=== PATIENT | female | born 1950 | race Caucasian/White ===

== ENCOUNTER 2016-05-28 07:46 | Inpatient (IN) | payer OTHER ==
[~2016-05-28] VITALS: Ht 175.3 cm; Wt 81.6 kg
[2016-05-28 07:46] VITALS: BP 114/70; PULSE 70; RESP 16; TEMP 96.9; O2SAT 96
[~2016-05-28 07:46] MED LIST: AMLO5TAB4 PO; ATEN100T44 PO; CARV12.548 PO; GABA-531 PO; HYDR-3698 PO; LOSA100T11 PO; METO-442 PO; PHEN-791 PO; SULF1TAB3 PO; TRAZ-123 PO
--- NOTE | 2016-05-28 07:46 | NUR ---
NNEKA Mcnair from home, Placed in room 06. Placed on group home paraprofessional, blood pressure machine and pulse oximeter. To gown for exam. Side rails up. Report given to ERASTO Paz.
--- NOTE | 2016-05-28 07:50 | NUR ---
Dr. Reynolds at bedside for evaluation
[2016-05-28] MEDS ORDERED: NACL 0.9% 1,000 ML IV SCH (08:08)
[2016-05-28] MEDS ORDERED: HYDROcodone/ACETAMIN 5-325 MG TAB (NORCO/ VICODIN) PO ONE (08:15)
[2016-05-28] MEDS ORDERED: NITROFURANTOIN MACROCRYSTAL 50 MG CAPSULE PO ONE (08:15)
--- NOTE | 2016-05-28 08:25 | NUR ---
at bedside, states that his hasn't walked in "quite a while" with pain on right hip radiating down right leg and rt leg. Taking Bactrim for UTI since 05/19/16
[2016-05-28 08:28] LABS: BASOPHILS % (AUTO) 0.4 % (0.0-2.0); EOSINOPHILS # (AUTO) 0.1 K/uL (0.0-0.4); EOSINOPHILS % (AUTO) 1.4 % (0.0-4.0); HEMATOCRIT 36.6 % (36-48); HEMOGLOBIN 12.6 g/dL (12.0-16.0); LYMPHOCYTES # (AUTO) 1.8 K/uL (1.0-5.5); LYMPHOCYTES % (AUTO) 19.8 % (20.5-51.5); MEAN CORPUSCULAR HEMOGLOBIN 29 pg (27-31); MEAN CORPUSCULAR HGB CONC 34 % (32-36); MEAN CORPUSCULAR VOLUME 86 fL (79.0-98.0); MONOCYTES # (AUTO) 0.4 K/uL (0.0-1.0); NEUTROPHILS # (AUTO) 6.8 K/uL (1.8-7.7); NEUTROPHILS % (AUTO) 74.4 % (40.0-70.0); PLATELET COUNT (AUTO) 255 K/uL (130-430); RED BLOOD CELL COUNT(AUTO) 4.27 MIL/uL (4.2-6.2); RED CELL DISTRIBUTION WIDTH 13.8 % (9.0-15.0); WHITE BLOOD COUNT (AUTO) 9.1 K/uL (4.8-10.8)
[2016-05-28 08:29] LABS: BILIRUBIN,URINE NEGATIVE (NEGATIVE); CLARITY/URINE SL CLOUDY (CLEAR); COLOR,URINE YELLOW (YELLOW); GLUCOSE,URINE NEGATIVE (NEGATIVE); KETONES,URINE NEGATIVE (NEGATIVE); LEUKOCYTE ESTERASE ,URINE 3+ (NEGATIVE); NITRITE, URINE POSITIVE (NEGATIVE); PROTEIN URINE NEGATIVE (NEGATIVE); UROBILINOGEN,URINE 0.2 (0.2-1.0)
[2016-05-28 08:30] LABS: BLOOD, URINE TRACE (NEGATIVE)
[2016-05-28 08:38] LABS: PROTHROMBIN TIME 10.7 SECS (9.5-12.5)
[2016-05-28] MEDS ORDERED: HYDR-3610 PO (08:38)
[2016-05-28] MEDS ORDERED: HYDR-1115 PO (08:38)
[2016-05-28] MEDS ORDERED: CARI350T27 PO (08:38)
[2016-05-28] MEDS ORDERED: CARV12.548 PO (08:38)
--- NOTE | 2016-05-28 08:39 | NUR ---
Medication reconciliation completed with information provided by . Any prior medication reconciliation on file was reviewed and corrected.
[2016-05-28 08:41] LABS: BACTERIA,URINE MODERATE /HPF (None Seen); MUCUS,URINE 1+ /LPF (None Seen); RBC,URINE 0-3 /HPF (0-3); WBC,URINE 20-50 /HPF (0-3)
[2016-05-28 08:41] LABS: CALCIUM 8.6 mg/dL (8.4-11.0); CREATININE 1.46 mg/dL (0.55-1.30); POTASSIUM 4.4 mmol/L (3.5-5.1)
[2016-05-28] MEDS ORDERED: KETOROLAC TROMETHAMINE 30 MG VIAL IVP ONE (08:45)
[2016-05-28 08:46] LABS: ALBUMIN 3.2 g/dL (3.4-4.8); TOTAL BILIRUBIN 0.3 mg/dL (0.0-1.0); TOTAL PROTEIN, SERUM 6.5 g/dL (6.4-8.3)
--- NOTE | 2016-05-28 10:10 | NUR ---
LAB TRIED TO REDRAW 2ND LACTIC ACID LEVEL UNSUCESSFULLY. I ATTEMPTED TO REDRAW AND UNSUCCEDDFUL.
--- NOTE | 2016-05-28 10:30 | NUR ---
LAB ATEMPTED REDRAW FOR LACTIC ACID LEVEL SUCCESSFULLY.
--- NOTE | 2016-05-28 11:12 | NUR ---
WAITING FOR ADMITTING MD TO CALL BACK FOR ADMISSION ORDERS.
--- NOTE | 2016-05-28 11:30 | NUR ---
Dr berman in to see pt. Orders left.
[2016-05-28] MEDS ORDERED: ONDANSETRON HCL 4 MG/2 ML VIAL IVP PRN (11:45)
--- NOTE | 2016-05-28 11:56 | NUR ---
Pt transported to [address] via took belongings home. Addendum: 05/28/16 at 1208 by [email or web address] REPORT GIVEN TO ARTI REYES
--- NOTE | 2016-05-28 12:00 | NUR ---
ADMIT NOTE Received pt from ER to the floor with a diagnosis of fall. Admission process initiated. patient oriented to pain management, safety and call light-teach back done.
[2016-05-28 12:15] VITALS: BP 161/102; PULSE 64; RESP 18; TEMP 97.1; O2SAT 94
--- NOTE | 2016-05-28 12:15 | NUR ---
Initial Notes Pt [id number] but a little lethargic. Complaints of pain to right shoulder. No distress noted. IV to right forearm #20g saline locked. Pt is incontinent. Cleaned and kept dry and comfortable. Oriented to unit. Educated about fall and safety precautions. at bedside. Kept comfortable. Will monitor.
[2016-05-28 12:19] VITALS: BP 161/102; PULSE 64; RESP 18; TEMP 97.1; O2SAT 94
--- NOTE | 2016-05-28 13:05 | NUR ---
CONS FOR DR Jennifer MARQUEZ FOR RIGHT LEG PAIN
--- NOTE | 2016-05-28 14:00 | NUR ---
Asleep Pt sound asleep. No signs of facial grimacing for pain or discomfort. No distress noted. Will monitor.
[2016-05-28] MEDS: NACL 0.9% 1,000 ML IV SCH ×2 (14:44→22:32)
[2016-05-28] MEDS: cloNIDine HCL 0.1 MG TABLET PO PRN (14:45)
--- NOTE | 2016-05-28 14:45 | NUR ---
Clonidine Pt asleep but reported by [employer] CHARTER BUS DRIVER that blood pressure was elevated 195/99. Medicated with Clonidine. Will monitor.
--- NOTE | 2016-05-28 14:50 | NUR ---
Assessment Patient awake, alert, oriented x4. Lungs clear. Respiration even and unlabored. 20 gauge peripheral IV in right forearm infusing NS @ 100 with no redness or edema at site. Bruises on bilateral upper extremities. No acute distress at this time. Scheduled IV ABX given per order. Patient stable at this time.
[2016-05-28] MEDS: AMIKACIN SULFATE 500 MG in D5W 100 ML IV SCH (14:54)
[2016-05-28 15:35] VITALS: BP 195/99; PULSE 65; RESP 16; TEMP 97; O2SAT 96
--- NOTE | 2016-05-28 16:18 | NUR ---
Rounds Pt sound asleep. No significant changes noted. at bedside. Will monitor.
--- NOTE | 2016-05-28 18:30 | NUR ---
Closing notes Pt eating dinner. No significant changes noted. Kept comfortable. Will endorse care to incoming nurse.
--- NOTE | 2016-05-28 18:53 | NUR ---
Dr. Bookre ROSE inside room assessing patient.
[2016-05-28 18:58] VITALS: BP 122/41
--- NOTE | 2016-05-28 19:50 | NUR ---
Initial Notes Patient alert, eating dinner at this time. Patient denies pain. No SOB noted. IV site patent, flushes well, infusing fluids as ordered. Patient repositioned in bed. Denies nausea/vomiting at this time. Goal of pain management, musculoskeletal stability and safety this shift. Call light within reach. Will continue to monitor.
[2016-05-28 20:00] VITALS: BP 135/62; PULSE 70; RESP 18; TEMP 98; O2SAT 93
--- NOTE | 2016-05-28 22:05 | NUR ---
Notes Patient sleeping at this time. No SOB noted. No s/s of pain or discomfort noted. IV site patent, flushes well, infusing fluids as ordered. Call light within reach. Will continue to monitor.
--- NOTE | 2016-05-29 00:15 | NUR ---
Notes Patient sleeping at this time. No SOB noted. No s/s of pain noted. IV site patent, flushes well, infusing fluids as ordered. Call light within reach. Will continue to monitor.
[2016-05-29 04:30] VITALS: BP 145/69; PULSE 85; RESP 18; TEMP 98.5; O2SAT 94
--- NOTE | 2016-05-29 06:33 | NUR ---
Closing Notes Patient denies pain. No SOB noted. IV site patent, flushes well, infusing fluids as ordered. Patient repositioned in bed. Denies nausea/vomiting at this time. Goal of pain management, musculoskeletal stability and safety met. Call light within reach. Will continue to monitor.
[2016-05-29] MEDS: NACL 0.9% 1,000 ML IV SCH ×2 (07:45→11:48)
--- NOTE | 2016-05-29 07:45 | NUR ---
INITIAL NOTE RECEIVED PATIENT FROM TEST ENGINE EVALUATOR NURSE, PATIENT IS RESTING IN BED, NO SIGNS OF DISTRESS, NO COMPLAINTS OF PAIN, ASSESSMENT COMPLETE, PATIENT HAS IV ON LEFT HAND GAUGE 22, WITH FLUIDS RUNNING, NO SIGNS OF INFILTRATION, INSTRUCTED PATIENT TO USE CALL STODDARD IF ASSISTANCE IS NEEDED PATIENT VERBALIZED UNDERSTANDING, BED IN LOWEST POSITION, CALL STODDARD LEFT IN PATIENT'S HAND, BED ALARM ON, TWO SIDE RAILS UP, FALL PRECAUTIONS IN PLACE, WILL CONTINUE TO MONITOR PATIENT.
[2016-05-29 08:00] VITALS: BP 156/95; PULSE 72; RESP 20; TEMP 97.4; O2SAT 94
--- NOTE | 2016-05-29 08:36 | NUR ---
PSYCH CONSULT Spoke with Sangeeta regarding request for consultation with Dr. Mccarthy ([phone]) for reason: dementia/psych illness.
--- NOTE | 2016-05-29 09:50 | NUR ---
RN ROUNDS PATIENT IS RESTING IN BED, NO COMPLAINTS OF PAIN, IS AT BEDSIDE, NO OTHER NEEDS AT THIS TIME, WILL CONTINUE TO MONITOR PATIENT, FALL PRECAUTIONS IN PLACE.
--- NOTE | 2016-05-29 11:45 | NUR ---
RN ROUNDS PATIENT IS RESTING IN BED, IS AT BEDSIDE, NO SIGNS OF DISTRESS, NO OTHER NEEDS AT THIS TIME, WILL CONTINUE TO MONITOR PATIENT, FALL PRECAUTIONS IN PLACE,
[2016-05-29] MEDS: cloNIDine HCL 0.1 MG TABLET PO PRN (11:49)
[2016-05-29] MEDS: HYDROmorphone 1 MG INJ. 1 MG/ML AMPUL IVP PRN (11:50)
[2016-05-29 12:25] VITALS: BP 155/88; PULSE 79; RESP 17; TEMP 97.1; O2SAT 97
[2016-05-29] MEDS: AMIKACIN SULFATE 500 MG in D5W 100 ML IV SCH (13:57)
--- NOTE | 2016-05-29 14:05 | NUR ---
RN ROUNDS PATIENT IS CURRENTLY RESTING IN BED, NO SIGNS OF DISTRESS, NO OTHER NEEDS AT THIS TIME, WILL CONTINUE TO MONITOR PATIENT, FALL PRECAUTIONS IN PLACE.
--- NOTE | 2016-05-29 16:15 | NUR ---
RN ROUNDS PATIENT IS CURRENTLY RESTING IN BED, NO SIGNS OF DISTRESS, PATIENT STATES SHE DOES NOT HAVE PAIN AT THIS TIME, AND SON CURRENTLY AT BEDSIDE, WAS ABLE TO TALK TO DR. DUMONT REGARDING CONCERNS ABOUT PATIENT DISCHARGING BACK HOME, DR. DUMONT ORDERED D/C PLANNING FOR PATIENT TO GO TO SNF. BED LEFT IN LOWEST POSITION, CALL STODDARD LEFT IN PATIENT'S HAND, BED ALARM ON, THREE SIDE RAILS UP, WILL CONTINUE TO MONITOR PATIENT, FALL PRECAUTIONS IN PLACE.
[2016-05-29 16:54] VITALS: BP 148/96; PULSE 73; RESP 18; TEMP 97.4; O2SAT 96
--- NOTE | 2016-05-29 16:55 | NUR ---
HCP GALLO Spoke with GALLO Christensen ([phone]) regarding discharge planning order for SNF placement and order for LSO brace. Faxed over: facesheet, medication list, H+P, discharge order and LSO brace order to fax # [phone]. Awaiting call back from Amparo.
--- NOTE | 2016-05-29 18:38 | NUR ---
CLOSING NOTE PATIENT IS CURRENTLY RESTING IN BED WATCHING TV, PATIENT STATES SHE DOES NOT HAVE ANY PAIN AT THIS TIME, ALL NEEDS MET, WILL ENDORSE PATIENT TO BOAT RENTAL CLERK NURSE, BED LEFT IN LOWEST POSITION, BED ALARM ON, THREE SIDE RAILS UP, FALL PRECAUTIONS IN PLACE.
[2016-05-29 19:40] VITALS: BP 135/76; PULSE 79; RESP 19; TEMP 97.6; O2SAT 95
--- NOTE | 2016-05-29 19:40 | NUR ---
Initial PM Note Pt was received lying in bed fully awake, alert and oriented x3. Speech is clear and pt is able to make her needs known. No c/o pain or discomfort. No acute distress noted. IVF of NS is in fusing well in RFA at 100ml/hr and no signs of infiltration noted at the IV site. Fall precautions are in place. Pt was instructed to call for assistance as needed and pt verbalized understanding. Call light is with pt and bed alarm is on. Bed is in the lowest and locked positions. Will continue to monitor pt.
--- NOTE | 2016-05-29 22:30 | NUR ---
Rounds Pt is resting comfortably in bed. IVF is infusing well in RFA.
[2016-05-30] MEDS: cloNIDine HCL 0.1 MG TABLET PO PRN ×2 (00:59→11:22)
--- NOTE | 2016-05-30 00:59 | NUR ---
Elevated Blood Pressure Blood Pressure 178/72 and Clonidine 0.1mg given po. Pt is moving all her extremities freely and speech is clear. Will continue to monitor pt.
[2016-05-30 01:01] VITALS: BP 178/72; PULSE 80; RESP 20; TEMP 96.8; O2SAT 99
--- NOTE | 2016-05-30 02:00 | NUR ---
Blood Pressure recheck BP 142/78. Pt is resting comfortably in bed. IVF is infusing well in RFA.
[2016-05-30] MEDS: NACL 0.9% 1,000 ML IV SCH (03:00)
--- NOTE | 2016-05-30 04:30 | NUR ---
Rounds Pt is sleeping without any resp distress noted. Fall and safety precautions are in place.
[2016-05-30 04:55] VITALS: BP 184/78; PULSE 69; RESP 16; TEMP 98; O2SAT 97
--- NOTE | 2016-05-30 06:30 | NUR ---
Closing Note Pt is awake and resting comfortably in bed. All pt's needs were attended to. No fall or injury noted this shift. Will endorse to day shift nurse.
--- NOTE | 2016-05-30 06:55 | NUR ---
IV Restart Pt was seen pulling at her IV tubing close to the IV Angiocath site. Angiocath almost completely out and kinked. No blood return noted. Angiocath was removed and noted to be intact. New IV was restarted in RFA with Angiocath 20G by Nurse Dante Sweet. IVF resumed at 100ml/hr. Pt is confused at this time and oriented to her name only. Fall and safety precautions are in place.
--- NOTE | 2016-05-30 07:30 | NUR ---
INITIAL NOTE PATIENT IS RESTING IN BED, NO SIGNS OF DISTRESS, NO COMPLAINTS OF PAIN, ASSESSMENT COMPLETE, PATIENT HAS IV ON RIGHT FOREARM GAUGE 20 WITH FLUIDS RUNNING, NO SIGNS OF INFILTRATION NOTED, INSTRUCTED PATIENT TO USE CALL STODDARD IF ASSISTANCE IS NEEDED, PATIENT VERBALIZED UNDERSTANDING, CALL STODDARD LEFT IN PATIENT'S HAND, BED ALARM ON, BED IN LOWEST POSITION,THREE SIDE RAILS UP FOR PATIENT'S SAFETY, FALL PRECAUTIONS IN PLACE, WILL CONTINUE TO MONITOR PATIENT.
[2016-05-30 08:00] VITALS: BP 173/99; PULSE 72; RESP 16; TEMP 97.2
--- NOTE | 2016-05-30 08:02 | NUR ---
MEDICATION MORNING MEDICATION GIVEN TO PATIENT, EDUCATED PATIENT ON POTENTIAL SIDE EFFECTS OF MEDICATIONS, PATIENT VERBALIZED UNDERSTANDING, NO OTHER NEEDS AT THIS TIME, WILL CONTINUE TO MONITOR PATIENT. FALL PRECAUTIONS IN PLACE, CALL STODDARD LEFT IN PATIENT'S HAND,
[2016-05-30 08:10] LABS: BASOPHILS % (AUTO) 0.2 % (0.0-2.0); EOSINOPHILS # (AUTO) 0.1 K/uL (0.0-0.4); HEMATOCRIT 39.9 % (36-48); HEMOGLOBIN 13.5 g/dL (12.0-16.0); LYMPHOCYTES # (AUTO) 1.5 K/uL (1.0-5.5); LYMPHOCYTES % (AUTO) 17.9 % (20.5-51.5); MEAN CORPUSCULAR HEMOGLOBIN 29 pg (27-31); MEAN CORPUSCULAR HGB CONC 34 % (32-36); MEAN CORPUSCULAR VOLUME 86 fL (79.0-98.0); MONOCYTES # (AUTO) 0.4 K/uL (0.0-1.0); MONOCYTES % (AUTO) 4.5 % (1.7-9.3); NEUTROPHILS # (AUTO) 6.4 K/uL (1.8-7.7); NEUTROPHILS % (AUTO) 76.4 % (40.0-70.0); PLATELET COUNT (AUTO) 279 K/uL (130-430); RED BLOOD CELL COUNT(AUTO) 4.64 MIL/uL (4.2-6.2); RED CELL DISTRIBUTION WIDTH 13.4 % (9.0-15.0); WHITE BLOOD COUNT (AUTO) 8.4 K/uL (4.8-10.8)
[2016-05-30 08:27] LABS: ALBUMIN 3.2 g/dL (3.4-4.8); CALCIUM 8.8 mg/dL (8.4-11.0); CREATININE 1.03 mg/dL (0.55-1.30); POTASSIUM 3.8 mmol/L (3.5-5.1); TOTAL BILIRUBIN 0.5 mg/dL (0.0-1.0); TOTAL PROTEIN, SERUM 6.4 g/dL (6.4-8.3)
[2016-05-30] MEDS ORDERED: LOSARTAN POTASSIUM 50 MG TABLET (COZAAR) PO SCH (09:00)
[2016-05-30] MEDS ORDERED: GABAPENTIN 300 MG CAPSULE PO SCH (09:00)
[2016-05-30] MEDS ORDERED: hydrALAZINE HCL 25 MG TABLET PO SCH (09:00)
[2016-05-30] MEDS ORDERED: CARVEDILOL 12.5 MG TABLET (COREG) PO SCH (09:00)
[2016-05-30] MEDS ORDERED: ASPIRIN 81 MG TAB.CHEW PO SCH (09:00)
--- NOTE | 2016-05-30 10:11 | NUR ---
Called GEETA HOLDER, s/w Hannah. She will forward msg to nurse outreach case manager (on other line).
--- NOTE | 2016-05-30 10:15 | NUR ---
RN ROUND PATIENT IS CURRENTLY RESTING IN BED, NO COMPLAINTS OF PAIN, NO SIGNS OF DISTRESS, DR. DUMONT IS HERE TO SEE PATIENT, WILL CONTINUE TO MONITOR PATIENT, CALL STODDARD LEFT IN PATIENT'S HAND, BED IN LOWEST POSITION, BED ALARM ON, FALL PRECAUTIONS IN PLACE.
--- NOTE | 2016-05-30 10:56 | NUR ---
Called PA/HCP f/u) [phone], tony Benson and I transferred the call to ERASTO Zavala.
--- NOTE | 2016-05-30 11:03 | NUR ---
DC TO SNF: HAS TALKED TO GHANSHYAM< A [employer]IONAL TANKER TRUCK DRIVER OF HCP> REGARDING DC PLAN. I ASK HER THAT IF WE STILL NEED A LUMBAR BRACE BEFOR DISCHARGE, AND SHE STATES THAT THERE WAS A MISCOMMUNICATION ABOUT THAT. CALL GHANSHYAM BACK FOR THE PLACEMENT, AND SHE STATES THAT THERE IS NO ANY PLACE ACCEPT THE PATIENT YET. SHE WILL CALL BACK WHEN THE PATIENT GOT ACCEPTED.
[2016-05-30 12:00] VITALS: BP 169/99; PULSE 63; RESP 16; TEMP 97.8; O2SAT 95
--- NOTE | 2016-05-30 12:05 | NUR ---
RN ROUNDS patient is currently sitting up in [facility],, charge nurse and intel recruiter assisted patient to chair, patient tolerated well, is at patient's side, instructed patient's to call if he is going to leave patient's side, for safety reason, verbalized understanding, call [place] left next to patient's hand, fall precautions in place.
[2016-05-30 12:26] VITALS: BP 108/70; PULSE 67; RESP 18; O2SAT 98
[2016-05-30] MEDS: HYDROmorphone 1 MG INJ. 1 MG/ML AMPUL IVP PRN (12:38)
[2016-05-30 13:00] VITALS: BP 108/70; PULSE 84; RESP 16; TEMP 98.2; O2SAT 96
--- NOTE | 2016-05-30 13:37 | NUR ---
PT TRANSFERRED Report given to Germain MAURER [phone] Transfer packet with Transfer Orders and Medication Reconciliation form given to EMT with report. Exitcare provided. [facility] ID band removed, replaced with ID band with pt's name and . IV catheter kept in place, per request of facility, All belongings sent with patient. Patient left floor via gurney escorted by EMT in no distress.
[2016-05-30] MEDS ORDERED: traZODone HCL 50 MG TABLET (DESYREL) PO SCH (21:00)
== END 2016-05-30 13:37 | DRG 543 ==
LOC: SED 07:46 → SMU 11:51
PROVIDERS: ADMIT Internal Medicine Hospice and Palliative Medicine; ATTEND Internal Medicine Hospice and Palliative Medicine
DX: M48.55XA Collapsed vertebra, not elsewhere classified, thoracolumbar region, initial encounter for fracture (principal); N39.0 Urinary tract infection, site not specified; I50.9 Heart failure, unspecified; F17.210 Nicotine dependence, cigarettes, uncomplicated; I11.0 Hypertensive heart disease with heart failure; R62.7 Adult failure to thrive; M79.604 Pain in right leg; F41.1 Generalized anxiety disorder; W18.39XA Other fall on same level, initial encounter; Z95.2 Presence of prosthetic heart valve; Z79.899 Other long term (current) drug therapy; Z95.1 Presence of aortocoronary bypass graft; Z88.6 Allergy status to analgesic agent; Z88.0 Allergy status to penicillin; Z88.8 Allergy status to other drugs, medicaments and biological substances; Z86.73 Personal history of transient ischemic attack (TIA), and cerebral infarction without residual deficits; Y93.89 Activity, other specified; Y92.89 Other specified places as the place of occurrence of the external cause; Y99.8 Other external cause status; F03.90 Unspecified dementia, unspecified severity, without behavioral disturbance, psychotic disturbance, mood disturbance, and anxiety
CPT/HCPCS: 36415; 70450-TC; 72132-TC; 73030; 80053; 81000-TC; 83605; 85025; 85610-TC; 85730-TC; 87040-TC; 87086; 87186-TC; 96361; 96374; 97530-GP; 99285; J0278; J1170; J1885; J7030; J7060